=== PATIENT | female | born 1980 | race Caucasian/White ===

== ENCOUNTER 2020-04-19 18:09 | Emergency (ER) | payer BC, SELFPAY ==
[2020-04-19 19:31] VITALS: BP 151/109; PULSE 89; RESP 20; TEMP 36.8; O2SAT 97; BMI 27.4
--- NOTE | 2020-04-19 19:40 | HMH.EDUTC ---
[facility] Disposition Clinical Impression: Left otitis media Qualifiers: Otitis media type: suppurative Chronicity: acute Recurrence: non-recurrent Spontaneous tympanic membrane rupture: without spontaneous rupture Qualified Code(s): H66.002 - Acute suppurative otitis media without spontaneous rupture of ear drum, left ear Disposition: Home, Self-Care Condition on Discharge: Good Instructions: Middle Ear Infection, Preventing the Spread of Coronavirus Discharge Instructions Additional Instructions: Drink plenty of fluids. Take tylenol or ibuprofen for pain or fever. Take the medications as directed. Follow up with your regular doctor. GO TO THE ER FOR ANY WORSENING SYMPTOMS Prescriptions: Amoxicillin [Amoxicillin 500mg Tab] 500 mg PO TID 10 Days #30 tab Transmission Status: Received by [id number] Fluconazole [Diflucan 150mg tab] 150 mg PO ONCE #1 tab Transmission Status: Received by [id number] methylPREDNISolone [Medrol] 4 mg PO DIRECTED 6 Days #21 [email or web address] Transmission Status: Received by [id number] Referrals: Bienvenido Holland [Primary Care Provider] - Forms: Work/School Release Time of Disposition: 19:47 Medical Decision Making - Medical Records Medical records reviewed: No: I reviewed the patient's medical records. - Nils Inquiry Pt receiving controlled substance: No Vital Signs: 04/19/20 19:31 04/19/20 19:52 Temperature 98.3 F 98.3 F Temperature Source Oral Pulse Rate 89 Pulse Rate [Right Brachial] 89 Respiratory Rate 20 20 Blood Pressure 151/109 H Blood Pressure [Right Arm] 151/109 H Blood Pressure Mean [Right Arm] 123 Blood Pressure Source [Right Arm] Automatic Cuff Blood Pressure Position [Right Arm] Sitting 02 Sat by Pulse Oximetry 97 Oxygen Delivery Method Room Air - Lab Data Lab results reviewed: Yes: I reviewed the patient's lab results. Lab Results 04/19/20 19:32: Strep Scn Rapid Clinic Negative Orders (Tests/Meds): ORDERS Category Date Time Status Covid-19 Nasal PCR Sendout Reji Routine Lab 04/19/20 19:20 Received Strep Screen Confirmation Stat Micro 04/19/20 19:32 Received [facility] HPI - General Stated complaint: Fever, Ear pain Time Seen by Provider: 04/19/20 19:40 Mode of Arrival: Ambulatory Source of Information: Patient Limitations: No Limitations Description of Symptoms (Recalled from Triage Doc. by RN): PATIENT C/O FEVER, LEFT EAR ACHE, AND SWOLLEN LEFT TONSIL X 2 DAYS. SHE IS REQUESTING COVID TEST, STATING SHE HAD 3 FRIENDS TEST POSITIVE RECENTLY HEENT Symptoms (Recalled from RN notes): Yes Resp Symptoms (Recalled from RN notes): No Skin Symptoms (Recalled from RN notes): No MS Symptoms (Recalled from RN notes): No Functional Status (Recalled from RN notes): WNL - History of Present Illness Provider Complaint: She c/o left ear pain for the past 2 days. Also, she needs to be checked for covid because she has had 3 friends to test positive over the past several days. - Related Data Previous Rx's Medication Instructions Recorded Amoxicillin [Amoxicillin 500mg Tab] 500 mg PO TID 10 Days #30 tab 04/19/20 Fluconazole [Diflucan 150mg tab] 150 mg PO ONCE #1 tab 04/19/20 methylPREDNISolone [Medrol] 4 mg PO DIRECTED 6 Days #21 04/19/20 tab.[email or web address] Allergies Allergy/AdvReac Type Severity Reaction Status Date / Time hydrocodone Allergy Verified 04/19/20 19:35 - Worker's Comp Is this a Worker's Comp case?: No [facility] History - Hepatitis A Screen Drug use history?: No High risk sexual behaviors?: No History of sexually transmitted infection?: No Currently employed?: No Childcare worker?: No Do you have indoor plumbing?: Yes Do you have electricity?: Yes Attestation statement:: This patient has been screened for Hepatitis A risk factors. I have reviewed the patient's past medical history: Yes Medical History: Reports:: Cancer - Social History Alcohol Intake: never Occup
[2020-04-19 19:52] VITALS: BP 151/109; PULSE 89; RESP 20; TEMP 36.8; O2SAT 97
[2020-04-19 19:52] LABS: UTC Strep Screen (Rapid) Negative (Negative)
[2020-04-21 12:12] LABS: Covid-19 Nasal PCR Sendout Lex Not Detected
== END 2020-04-19 19:55 | disposition home or self-care (01) ==
PROVIDERS: Emergency Provider Nurse Practitioner Family; PCP Family Medicine
DX: Z20.828 Contact with and (suspected) exposure to other viral communicable diseases (principal); H66.002 Acute suppurative otitis media without spontaneous rupture of ear drum, left ear
CPT/HCPCS: 87880; 99202; U0004